=== PATIENT | male | born 2000 | race Two or more races ===

== ENCOUNTER 2025-10-09 10:26 | Emergency (ER) | payer BC, SELFPAY ==
[2025-10-09 10:27] VITALS: BMI 20.7
[2025-10-09 11:12] VITALS: BP 128/79; PULSE 95; RESP 16; TEMP 36.6; O2SAT 98
--- NOTE | 2025-10-09 12:04 | PD.EDWOUND ---
ED Wound/Laceration-RME/HPI General Chief Complaint: Wound Recheck / Suture Removal Stated Complaint: SUTURE REMOVAL Time Seen by Provider: 10/09/25 11:17 Arrival date/time: 10/09/25 10:26 RME / HPI RME / HPI narrative: 24-year-old male presents to the ER requesting suture removal from a tongue laceration which was performed for cosmetic purposes 6 days ago. Denies any fever, pain, discharge, sore throat, shortness of breath, bleeding. Related Data Previous Rx's ?Medication ?Instructions ?Recorded amoxicillin 875 mg-potassium 1 tab PO Q12H #20 tabs 10/09/25 clavulanate 125 mg tablet Allergies Allergy/AdvReac Type Severity Reaction Status Date / Time No Known Allergies Allergy Unknown Uncoded 10/09/25 10:29 ED Exam Narrative Physical exam: Constitutional: Patient alert and oriented. Well appearing. No acute distress. Not toxic appearing. Head: Normocephalic, atraumatic. Eyes: Periorbital regions bilaterally normal to inspection. Conjunctiva clear bilaterally. Sclera anicteric bilaterally. Pupils equal, round, reactive to light bilaterally. Extraocular movements intact bilaterally. Mouth/Throat: Positive bifurcated tongue with sutures in place with mild erythema, yellow drainage, miild tenderness noted. No fluctuance or induration. Mucous membranes moist. No stridor or muffled voice. Uvula midline. Rise and fall of soft palate normal. No tonsillar edema or exudate. No peritonsillar fullness. No trismus. Handling secretions without difficulty. Airway widely patent. Neck: Supple. Trachea midline. No JVD. No nuchal rigidity. No midline tenderness or step-offs. Normal range of motion. Respiratory: Normal effort. No accessory muscle use or respiratory distress. Lungs clear to auscultation bilaterally without rhonchi, wheezes, or crackles. Cardiovascular: RRR. Normal S1/S2. No murmurs or rubs. Radial pulses intact bilaterally. Upper Extremities: No gross deformities. Lower Extremities: No gross deformities. No edema or calf tenderness. Neuro: Speech normal. No gross motor or sensory deficits to upper or lower extremities bilaterally. GCS 15. CN II?XII grossly intact. Skin: Warm, dry, normal color. Psych: Normal affect. Cooperative. Normal insight. Course Course Course Narrative: Concern for wound infection of patient's tongue status post bifurcation procedure by a nonmedical professional who utilized the red to suture his tongue closed Sutures or thread was removed from patient's tongue and patient observed in the ER without recurrence of bleeding after transaminase acid placed due to small amount of bleeding Augmentin initiated here Airway remains widely patent patient tolerating p.o. without difficulty Plan for patient to follow-up with his PCP and ear nose and throat doctor within 1 to 2 days, salt water rinses, Augmentin, strict ER return precautions advised Quality Measures none Orders Category Date Time Status Miscellaneous Nursing Order NOW Care 10/09/25 14:16 Completed Amoxicillin/Pot Clav 875 [Augmentin 875] Med 10/09/25 16:27 Discontinued 1 tab PO X1 ONE Tranexamic Acid Inj Med 10/09/25 14:16 Discontinued 1 mg TOP NOW ONE Reevaluation(s) Reevaluation #1: At the time of reassessment prior to discharge, the patient remains alert and oriented ?3 with GCS 15. Vitals are normal, pain is controlled, and the patient is tolerating oral intake without nausea or vomiting. The patient is agreeable to discharge and verbalizes understanding of the diagnosis, studies, treatment plan, medications (including side effects/precautions), and strict ER return precautions as discussed in the ED. All concerns were addressed, and the patient is comfortable with the plan. Vital Signs Vital signs: Vital Signs Temperature 97.9 F 10/09/25 11:12 Pulse Rate 95 10/09/25 11:12 Respiratory Rate 16 10/09/25 11:12 Blood Pressure 128/79 10/09/25 11:12 Pulse Oximetry (%) 98 10/09/25 11:12 Oxygen Delivery Method Room Air 10/09/25 11:12 Wound / Laceration MDM Narrative MDM Narrative:: 24-year-old male presents to the ER after having his tongue be cut in half by a person who does this for a living about 6 days ago and is requesting to get his sutures out. Denies any fever, sore throat, shortness of breath however his tongue still does hurt and minimally. Patient data External records reviewed:: [facility] previous records Clinical information provided by:: patient Social determinants that could affect healthcare access:: none Patient has the following chronic illnesses:: As noted How is presenting disease/condition affected by chronic disease/condition?: no chronic disease Evaluation data The following diagnostics were reviewed and interpreted by me:: other (specify) Lab and/or radiology exams considered but not ordered:: Additional Labs and radiology considered, but not ordered as they were not clinically indicated at this time. Interpretation Summary: As noted Medications / Prescriptions Medications or Prescriptions considered but not ordered:: I ordered medications based on the patient?s clinical needs and assessment, as documented in the chart. For medications not prescribed, they were not indicated for the patient's current condition, and I determined they were unnecessary at this time to avoid potential risks or complications. Medication administrations:: Medication Administration History Discontinued Medications Amoxicillin/Clavulanate Potassium (Amoxicillin/Pot Clav 875 Tablet) 1 tab PO X1 ONE Stop: 10/09/25 16:28 Last Admin: 10/09/25 16:50 Dose: 1 tab Documented By: ELE Tranexamic Acid (Tranexamic Acid Inj 1,000 Mg/10 Ml Vial) 1 mg TOP NOW ONE Stop: 10/09/25 14:17 Last Admin: 10/09/25 14:38 Dose: 1 mg Documented By: ELE Comments: given to provider As noted Consultations Consultation(s) initiated? (list below): No Diagnosis Wound Differential Diagnosis: other Most likely diagnosis given after review of the tests above:: Wound infection Admission Indicated Admission indicated?: not indicated Admission Request Was there a request for admission?: No Disposition Plan Disposition Plan: Discharge Discharge Attestation Discharge Attestation: The patient and all family members were given an opportunity to ask questions and understood the discharge instructions. Discharge instructions specifically effects, indications for sooner follow up or return to the emergency department, and the expected course of current diagnosis. Patient condition: Stable Discharge Plan Plan Patient Disposition: HOME (Self Care) Patient condition on transfer: Stable Prescriptions/Referrals Prescriptions/Med Rec: New amoxicillin-pot clavulanate 875-125 mg tablet 1 tab PO Q12H Qty: 20 0RF Referrals: No Primary/Family,Physician [Primary Care Provider] - In 1 week Problem List Clinical Impression: Infected wound Patient/Caregiver Discharge Instructions Education Materials: ED Wound Check (Infection) Additional Instructions: Follow up with your primary medical doctor within 48 hours. Return to the Emergency Room immediately for any new, worsening, continuing symptoms or any concerns at all. Return to the Emergency Room within 48 hours if you are unable to follow up with your primary medical doctor within 48 hours. Do not get your tongue cut by this person again as they did not even use actual sutures. Follow-up with an ear nose and throat doctor this week Print Language: Turkish Stand Alone Forms: Kadi Award Info., Patient Portal Info Letter PA/UTILITY DIVISION PROJECT MANAGER Supervising Physician PA/UTILITY DIVISION PROJECT MANAGER Supervising Physician: Dr. Hopper
[2025-10-09] MEDS: TRANEXAMIC ACID INJ 1,000 MG/10 ML VIAL 1 MG TOP (14:38)
[2025-10-09] MEDS: AMOXICILLIN/POT CLAV 875 TABLET 1 TAB PO (16:50)
== END 2025-10-09 17:33 | disposition home or self-care (01) ==
PROVIDERS: Emergency Provider Physician Assistant
DX: Z48.02 Encounter for removal of sutures (principal); L08.9 Local infection of the skin and subcutaneous tissue, unspecified
CPT/HCPCS: 99281; J3490; A9270